=== PATIENT | male | born 1960 | race Caucasian/White ===

== ENCOUNTER → 2017-12-27 | Outpatient (CLI) | payer OTHER | LOC: FIMAGING 10:52 | PROVIDERS: ATTEND Family Medicine Sports Medicine | DX: Z13.828 Encounter for screening for other musculoskeletal disorder (principal); M21.70 Unequal limb length (acquired), unspecified site ==

== ENCOUNTER → 2019-02-13 | Outpatient (CLI) | payer OTHER | LOC: FIMAGING 10:55 ==